=== PATIENT | female | born 1990 | race African-American/Black ===

== ENCOUNTER 2018-11-12 03:25 | Emergency (ER) | payer BC ==
[2018-11-12 03:37] VITALS: BP 123/109
[2018-11-12] MEDS ORDERED: LORazepam 2 MG/ML SDV IVPUSH ONE (03:47)
[2018-11-12] MEDS ORDERED: Metoclopramide 10 MG/2 ML SDV IVPUSH ONE (03:48)
--- NOTE | 2018-11-12 03:51 | EDM.PDOCBH ---
ED HPI GENERAL MEDICAL PROBLEM - General Chief Complaint: Drug or Alcohol Abuse Stated Complaint: MH EVAL/ALCOHOL Time Seen by Provider: 11/12/18 03:46 Source of Information: Reports: Patient, Police History Limitations: Reports: Intoxication, Other (hyperventilating and very anxious. ) - History of Present Illness INITIAL COMMENTS - FREE TEXT/NARRATIVE: 28-year-old female brought to the ED per local police officers. 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 She apparently drank more alcohol than usual tonight and opted to drive making poor decisions. He presents hyperventilating and extremely anxious partly due to alcohol on board and the fact that there are several consequences to what is happened to her tonight with findings, loss of license, possible job loss. At the time of interview she is hyperventilating very badly and agitated not able to carry on a conversation. She is very tearful and anxious. Apparently she is not under arrest. She did ball[place] out tonight so that she does not have to stay in [facility]. Has a history of anxiety and depression and apparently is on anxiolytics and antidepressants medication but she can't remember the names of them. Police indicate that she became so agitated they had to essentially polar out of the vehicle. Her breathalyzer blood alcohol was 0.157. She denies any other street drugs on board. Onset: Today Duration: Hour(s): Location: Reports: Other (Is been in place custody for an hour. By alcohol and agitated and anxious.) Quality: Reports: Other (Agitation/) Severity: Severe (anxiety) Improves with: Reports: None Worsens with: Reports: None Context: Denies: Activity, Exercise, Lifting, Sick Contact, Trauma, Other Associated Symptoms: Reports: Other (Tearful. Hyperventilating agitated and anxious.). Denies: Confusion Treatments [employer]: Reports: Other (see below) (None.) - Related Data Allergies Allergy/AdvReac Type Severity Reaction Status Date / Time No Known Allergies Allergy Verified 09/29/14 05:09 Home Meds: Home Meds . [Unable to Verify Home Med List] 11/12/18 [History] Past Medical History - Past Health History Medical/Surgical History: Denies Medical/Surgical History Respiratory History: Reports: Asthma Psychiatric History: Reports: Anxiety, Depression - Past Surgical History Musculoskeletal Surgical History: Reports: Arthroscopic Knee Social & Family History - Tobacco Use Smoking Status *Q: Never Smoker - Recreational Drug Use Recreational Drug Use: No - Living Situation & Occupation Occupation: Employed ED ROS GENERAL - Review of Systems Review Of Systems: See Below Constitutional: Reports: Decreased Appetite, Other (Denies any nausea vomiting) . Denies: Fever, Chills, Malaise, Weakness, Fatigue, Weight Loss HEENT: Reports: No Symptoms Respiratory: Reports: Shortness of Breath. Denies: Wheezing, Pleuritic Chest Pain, Cough, Sputum Cardiovascular: Reports: Chest Pain (Chest heaviness from anxiety) Endocrine: Reports: No Symptoms GI/Abdominal: Reports: Nausea (Mild nausea with no vomiting.) : Reports: No Symptoms Musculoskeletal: Reports: No Symptoms Skin: Reports: No Symptoms Neurological: Reports: Dizziness, Numbness (Very anxious and hyperventilating both arms and periorally.), Tingling, Other Psychiatric: Reports: Anxiety (Hyperventilation syndrome), Other Hematologic/Lymphatic: Reports: No Symptoms Immunologic: Reports: No Symptoms ED EXAM, BEHAVIORAL HEALTH - Physical Exam Exam: See Below Exam Limited By: Other (Referring anxious and tearful.) General Appearance: Anxious, Other (Mildly agitated hyperventilating.) Eye Exam: Bilateral Eye: Conjunctival Injection (Both conjunctivae are moderately injected.), Nystagmus (On lateral gaze bilaterally.) Throat/Mouth: Normal Inspection, Normal Lips, Normal Oropharynx, Other Head: Atraumatic (Breath smells strongly of alcohol.), Normocephalic, Other Neck: Normal Inspection, Supple, Non-Tender, Full Range of Motion. No: Lymphadenopathy (L) (No signs of head or facial trauma), Lymphadenopathy (R) Respiratory/Chest: Lungs Clear (Hyperventilation syndrome.), Normal Breath Sounds, Chest Non-Tender, Respiratory Distress Cardiovascular: No Edema (Resting tachycardia of 1 80/m due to being anxious.), No Gallop, No Rub, Tachycardia, Diastolic Murmur, Other (Blood pressure is mildly elevated but is incorrect as the pulse pressures too ) GI/Abdominal: Normal Bowel Sounds (narrow. I believe this is because she cannot hold still for blood pressure monitoring.), Soft, Non-Tender, No Organomegaly, No Abnormal Bruit, No Mass, Pelvis Stable, Other (Denies any possibility of . Apparently she is in a monogamous lesbian relationship.) Back Exam: Normal Inspection, Full Range of Motion. No: CVA Tenderness (L), CVA Tenderness (R) Extremities: Normal Inspection, Normal Range of Motion, Non-Tender, No Pedal Edema, Normal Capillary Refill Neurological: CN II-XII Intact, Normal Cognition, Oriented x 3. No: Normal Mood /Affect Psychiatric: Restless, Tearful, Agitated, Other (Hyperventilation syndrome severe.) Skin Exam: Warm, Dry, Intact, Normal color, No rash COURSE, BEHAVIORAL HEALTH COMP - Course Vital Signs: Last Vital Signs Temp 36.6 C 11/12/18 03:29 Pulse 181 H 11/12/18 03:29 Resp 16 11/12/18 03:29 BP 123/109 H 11/12/18 03:29 Pulse Ox 97 11/12/18 03:29 Orders, Labs, Meds: Medications Discontinued Medications Generic Name Dose Route Start Last Admin Trade Name Freq PRN Reason Stop Dose Admin Dextrose/Sodium Chloride 1,000 mls @ 500 mls/hr 11/12/18 04:00 11/12/18 04:00 Dextrose 5%-Normal Saline IV 500 mls/hr ASDIRECTED MARTIN Administration Lorazepam 1 mg 11/12/18 03:47 11/12/18 03:59 Ativan IVPUSH 11/12/18 03:48 1 mg ONETIME ONE Administration Metoclopramide HCl 7.5 mg 11/12/18 03:48 Reglan IVPUSH 11/12/18 03:49 ONETIME ONE Re-Assessment/Re-Exam: 28-year-old female arrested tonight for DUI. She works at the [employer] as a guard. Therefore its extremely stressful for her from the point of view potentially losing her job as well as the consequences of DUI. He said brought her to the ED at her request as she is seeking help. She is severely agitated with severe hyperventilation syndrome at this time and not able to get any useful information from her. She is extremely anxious and tearful. Obviously intoxicated by alcohol. Apparently she blew 0.157. She has bonded out and will not have to go to [facility] and is not under arrest at this time. Plan IV D5 normal saline at 500 mils per hour. Ativan 1 mg IV and Reglan 10 mg IV. Re-Assessment/Re-Exam Date: 11/12/18 (0400: Patient opted not to take the Reglan.) Re-Assessment/Re-Exam Time: 04:35 (Patient remains agitated and anxious. She is very inebriated. Chaitanya which is her lesbian girlfriend is here with her and is willing to take her home and care for her. Patient is very unhappy with being charged with a DUI by her fellow police officers and she is a guard at the [employer]. I am nothing else to offer at this time. I advised that if she wants treatment for alcohol and drug withdrawal she should call [facility]/ human resources on Wednesday when she is sober.) Departure - Departure Time of Disposition: 04:38 Disposition: Home, Self-Care 01 Condition: Fair Clinical Impression: Hyperventilation syndrome, Panic attack as reaction to stress Acute alcohol intoxication Qualifiers: Complication of substance-induced condition: uncomplicated Qualified Code(s): F10.920 - Alcohol use, unspecified with intoxication, uncomplicated - Discharge Information *PRESCRIPTION DRUG MONITORING PROGRAM REVIEWED*: Not Applicable *COPY OF PRESCRIPTION DRUG MONITORING REPORT IN PATIENT ALBERTO: Not Applicable Instructions: Alcohol Intoxication, [id number], Panic Attack Additional Instructions: Evaluation the emergency room today in regards to alcohol intoxication and being apprehended by police officers while operating a motor vehicle while under the influence of alcohol. You are currently not under arrest and bonded out at this time. You presented to the emergency room extremely anxious with hyperventilation syndrome compatible with panic attack due to exceptional stress. You're treated with Ativan 1 mg IV to provide some degree of control of anxiety. If you decide you require treatment for alcohol use. Suggest contacting [facility] at [phone] on Wednesday to arrange an appointment with the drug and alcohol treatment counselor. This is usually mandated by the court system in the future due to DUI. They will not see wellness sure completely sober at the time of the interview. History also suggest you may be suffering from underlying major depressive disorder and may need help in this regard by counseling and/or medication. This can be followed up through [facility] as well-with referral to psychiatry services.
[2018-11-12] MEDS ORDERED: Dextrose 5%-0.9% NaCl 1,000 ML IV SCH (04:00)
== END 2018-11-12 04:41 | disposition home or self-care (01) ==
LOC: JD.ED 03:25
DX: F45.8 Other somatoform disorders (principal); F41.0 Panic disorder [episodic paroxysmal anxiety]; F10.120 Alcohol abuse with intoxication, uncomplicated
CPT/HCPCS: 99283; J2060; J7042; 99284